=== PATIENT | male | born 1980 | race Caucasian/White ===

== ENCOUNTER 2019-09-05 01:43 | Emergency (ER) | payer OTHER ==
[~2019-09-05] VITALS: Ht 170.2 cm; Wt 121.6 kg
[2019-09-05 01:48] VITALS: Ht 170.2 cm; Wt 121.6 kg
[2019-09-05 02:42] LABS: BASOPHIL % 0.6 % (0-2); PLATELET COUNT 239 x10^3mcL (130-400); RED CELL DISTRIBUTION WIDTH 12.5 % (11.5-14.5)
[2019-09-05 03:35] LABS: CARBON DIOXIDE 16.6 mmol/L (21-32); CHLORIDE SERUM 100 mmol/L (98-107); POTASSIUM SERUM 3.6 mmol/L (3.5-5.1); SODIUM SERUM 136 mmol/L (136-145)
[2019-09-05 03:36] LABS: CREATININE SERUM 0.9 mg/dL (0.7-1.3); GFR1 > 60 mL/min; GLUCOSE SERUM 184 mg/dL (74-106); TOTAL PROTEIN, SERUM 7.5 g/dL (6.4-8.2)
[2019-09-05 03:37] LABS: ALBUMIN 3.5 g/dL (3.4-5.0); ALKALINE PHOSPHATASE 99 U/L (46-116); CALCIUM 8.1 mg/dL (8.5-10.1)
[2019-09-05 04:02] LABS: ALT/SGPT 55 U/L (16-63); AST/SGOT 21 U/L (15-37)
[2019-09-05 04:16] VITALS: BP 138/89
== END 2019-09-05 04:16 | disposition home or self-care (01) ==
LOC: ED 01:43
PROVIDERS: Emergency Medicine
DX: T78.8XXA Other adverse effects, not elsewhere classified, initial encounter (principal); R07.89 Other chest pain; E11.9 Type 2 diabetes mellitus without complications; I10 Essential (primary) hypertension; X58.XXXA Exposure to other specified factors, initial encounter
CPT/HCPCS: 36415; 83880; J1885; Q0092